=== PATIENT | male | born 1990 | race Two or more races ===

== ENCOUNTER 2020-01-05 15:08 | Inpatient (IN) | payer MEDICAID ==
[~2020-01-05] VITALS: Ht 170.2 cm; Wt 92.5 kg
[2020-01-05] MEDS ORDERED: SODIUM CHLORIDE 0.9% 1,000 ML IV ONE ×2 (16:07→18:25)
[2020-01-05] MEDS ORDERED: ONDANSETRON HCL 4MG/2ML INJ IV ONE (16:15)
[2020-01-05] MEDS ORDERED: KETOROLAC 30MG/ML VIAL IV ONE (16:15)
[2020-01-05] MEDS ORDERED: ACETAMINOPHEN 325MG TABLET PO ONE (16:45)
[2020-01-05 16:56] LABS: HEMATOCRIT. 43.8 % (42.0-52.0); HEMOGLOBIN. 15.3 g/dL (14.0-18.0); MEAN CORPUSCULAR HEMOGLOBIN 30.1 pg (28.0-32.0); MEAN CORPUSCULAR VOLUME 85.9 fL (80.0-94.0); PLATELET 245 x1000/uL (130-400); RED CELL DISTRIBUTION WIDTH 13.4 % (11.6-14.6)
[2020-01-05 17:02] LABS: CHLORIDE 102 mEq/L (98-107)
[2020-01-05 17:23] LABS: PLATELET ESTIMATE NORMAL
[2020-01-05 17:27] LABS: CLARITY URINE CLOUDY (CLEAR); COLOR URINE DARK YELLOW (YELLOW); KETONES URINE NEGATIVE (NEGATIVE); LEUKOCYTE ESTERASE URINE 3+ (NEGATIVE); NITRITE URINE NEGATIVE (NEGATIVE); OCCULT BLOOD URINE NEGATIVE (NEGATIVE); PH URINE 6.5 (4.5-8.0); PROTEIN URINE NEGATIVE (NEGATIVE)
[2020-01-05 17:49] LABS: *AMPHETAMINES SCREEN URINE NEGATIVE (NEGATIVE); *BARBITURATES SCREEN URINE NEGATIVE (NEGATIVE); *BENZODIAZEPINES SCREEN URINE NEGATIVE (NEGATIVE)
[2020-01-05 17:50] LABS: *COCAINE SCREEN URINE NEGATIVE (NEGATIVE); METHADONE URINE SCREEN NEGATIVE (NEGATIVE); OPIATES URINE SCREEN NEGATIVE (NEGATIVE); PHENCYCLIDINE URINE SCREEN NEGATIVE (NEGATIVE)
[2020-01-05 17:52] LABS: CANNABINOID URINE SCREEN NEGATIVE (NEGATIVE)
[2020-01-05] MEDS ORDERED: CEFTRIAXONE 1 G PREMIX 50 ML IV ONE (18:15)
[2020-01-05 18:35] LABS: CREATINE KINASE 126 IU/L (39-308)
[2020-01-05] MEDS ORDERED: ACETAMINOPHEN 325MG TABLET PO PRN (23:15)
[2020-01-05] MEDS ORDERED: IPRATROPIUM/ALBUTEROL 0.5-3(2.5)MG/3ML NEB NEB PRN (23:15)
[2020-01-05] MEDS ORDERED: ONDANSETRON HCL 4MG/2ML INJ IV PRN (23:15)
[2020-01-05] MEDS ORDERED: DOCUSATE SODIUM 100MG CAPSULE PO PRN (23:15)
[2020-01-05] MEDS ORDERED: CLONIDINE 0.1MG TABLET PO PRN (23:15)
[2020-01-05] MEDS ORDERED: MAGNESIUM/ALUMINUM HYDROXIDE/SIMETHICONE 30ML UDC PO PRN (23:15)
[2020-01-06 00:16] LABS: HEPATITIS B SURFACE ANTIGEN NEGATIVE
[2020-01-06 00:45] LABS: HEPATITIS A AB IGM NEGATIVE (NEGATIVE)
[2020-01-06] MEDS ORDERED: DIPHENHYDRAMINE 25MG CAPSULE PO PRN (03:30)
[2020-01-06 04:40] LABS: HEMOGLOBIN. 13.4 g/dL (14.0-18.0); MEAN CORPUSCULAR HEMOGLOBIN 30.1 pg (28.0-32.0); MEAN CORPUSCULAR VOLUME 85.8 fL (80.0-94.0); MEAN PLATELET VOLUME 8.8 fl (7.4-10.4); PLATELET 203 x1000/uL (130-400); RED BLOOD CELL COUNT 4.43 mill/uL (4.7-6.1); RED CELL DISTRIBUTION WIDTH 13.3 % (11.6-14.6)
[2020-01-06 04:43] LABS: CHLORIDE 106 mEq/L (98-107)
[2020-01-06 04:52] LABS: LDL CHOLESTEROL 47 mg/dL (5-100)
[2020-01-06 04:53] LABS: CREATINE KINASE 61 IU/L (39-308); HDL CHOLESTEROL 10 mg/dL (40-59)
[2020-01-06 04:56] LABS: CREATINE KINASE MB FRACTION < 1.0 ng/mL (0.5-3.6)
[2020-01-06 05:02] LABS: ATYPICAL LYMPHOCYTES 4; PLATELET ESTIMATE NORMAL
[2020-01-06] MEDS ORDERED: CEFTRIAXONE 1 G PREMIX 50 ML IV NR (08:30)
[2020-01-06] MEDS ORDERED: IOHEXOL-300 100 ML BOTTLE ONE (18:54)
[2020-01-06 21:31] LABS: CREATINE KINASE 46 IU/L (39-308); CREATINE KINASE MB FRACTION < 1.0 ng/mL (0.5-3.6)
[2020-01-07] MEDS ORDERED: CEFTRIAXONE 1 G PREMIX 50 ML IV SCH (09:00)
[2020-01-07 10:10] VITALS: BP 124/80
[2020-01-07] MEDS: LEVOFLOXACIN 750MG PREMIX 150 ML IV SCH (11:56)
[2020-01-07 20:00] VITALS: BP 122/75
[2020-01-08] VITALS: BP 126/80
[2020-01-08 04:00] VITALS: BP 128/84
[2020-01-08 04:06] LABS: HIV SCREEN 4G Non Reactive (Non Reactive)
[2020-01-08 04:06] LABS: NEISSERIA GONORRHOEAE NAA Positive (Negative)
[2020-01-08 06:40] LABS: HEMATOCRIT. 36.2 % (42.0-52.0); HEMOGLOBIN. 12.6 g/dL (14.0-18.0); MEAN CORPUSCULAR HEMOGLOBIN 30.3 pg (28.0-32.0); MEAN CORPUSCULAR VOLUME 86.7 fL (80.0-94.0); PLATELET 180 x1000/uL (130-400); RED BLOOD CELL COUNT 4.17 mill/uL (4.7-6.1); RED CELL DISTRIBUTION WIDTH 13.4 % (11.6-14.6)
[2020-01-08 07:03] LABS: CHLORIDE 105 mEq/L (98-107)
[2020-01-08 07:11] LABS: HAPTOGLOBIN 208 mg/dL (30-200)
[2020-01-08 08:00] VITALS: BP 116/70
[2020-01-08] MEDS: LEVOFLOXACIN 750MG PREMIX 150 ML IV SCH (11:47)
[2020-01-08 12:00] VITALS: BP 123/81
[2020-01-08] MEDS ORDERED: AZITHROMYCIN 500 MG TABLET PO SCH (13:00)
[2020-01-08 13:50] LABS: PLATELET ESTIMATE NORMAL
[2020-01-08] MEDS: CEFTRIAXONE 1 G PREMIX 50 ML IV SCH (14:44)
[2020-01-08] MEDS: METRONIDAZOLE 500 MG PREMIX 100 ML IV SCH ×2 (14:59→21:39)
[2020-01-08 16:00] VITALS: BP 114/67
[2020-01-08 20:00] VITALS: BP 125/82
[2020-01-09] VITALS: BP 122/76
[2020-01-09 04:00] VITALS: BP 120/73
[2020-01-09] MEDS: METRONIDAZOLE 500 MG PREMIX 100 ML IV SCH ×3 (05:27→21:20)
[2020-01-09 07:01] LABS: HEMATOCRIT. 37.6 % (42.0-52.0); MEAN CORPUSCULAR HEMOGLOBIN 29.6 pg (28.0-32.0); MEAN PLATELET VOLUME 9.3 fl (7.4-10.4); PLATELET 184 x1000/uL (130-400); RED BLOOD CELL COUNT 4.38 mill/uL (4.7-6.1); RED CELL DISTRIBUTION WIDTH 13.5 % (11.6-14.6)
[2020-01-09 07:27] LABS: CHLORIDE 105 mEq/L (98-107)
[2020-01-09 08:00] VITALS: BP 110/70
[2020-01-09] MEDS: CEFTRIAXONE 1 G PREMIX 50 ML IV SCH (09:00)
[2020-01-09 12:00] VITALS: BP 132/87
[2020-01-09 16:00] VITALS: BP 130/91
[2020-01-09 20:00] VITALS: BP 117/72
[2020-01-09 21:05] LABS: ATYPICAL LYMPHOCYTES 7
[2020-01-09 21:06] LABS: PLATELET ESTIMATE NORMAL
[2020-01-10] VITALS: BP 116/72
[2020-01-10 04:00] VITALS: BP 107/64
[2020-01-10] MEDS: METRONIDAZOLE 500 MG PREMIX 100 ML IV SCH ×2 (05:26→13:59)
[2020-01-10 08:00] VITALS: BP 122/76
[2020-01-10] MEDS: CEFTRIAXONE 1 G PREMIX 50 ML IV SCH (08:05)
[2020-01-10 12:00] VITALS: BP 112/74
[2020-01-10 15:51] VITALS: BP 109/67
[2020-01-10 16:00] VITALS: BP 109/67
[2020-01-11 08:00] VITALS: BP 122/73
[2020-01-11 11:58] VITALS: BP 108/60
== END 2020-01-10 16:59 | disposition home or self-care (01) | DRG 720 ==
LOC: ER 15:08 → 6EST 21:16 → EDBEDREQ 21:18 → EDBEDREQTM 21:18 → ENRESERV 01-07 09:17
PROVIDERS: ADMIT Internal Medicine; ATTEND Internal Medicine
DX: A41.9 Sepsis, unspecified organism (principal); J90 Pleural effusion, not elsewhere classified; K81.0 Acute cholecystitis; K70.9 Alcoholic liver disease, unspecified; K75.9 Inflammatory liver disease, unspecified; D64.9 Anemia, unspecified; D72.821 Monocytosis (symptomatic); E78.00 Pure hypercholesterolemia, unspecified; K57.30 Diverticulosis of large intestine without perforation or abscess without bleeding; E78.1 Pure hyperglyceridemia; K42.9 Umbilical hernia without obstruction or gangrene; N39.0 Urinary tract infection, site not specified; J45.909 Unspecified asthma, uncomplicated; K76.0 Fatty (change of) liver, not elsewhere classified; R74.0 Nonspecific elevation of levels of transaminase and lactic acid dehydrogenase [LDH]; K76.9 Liver disease, unspecified; Z20.828 Contact with and (suspected) exposure to other viral communicable diseases; A54.01 Gonococcal cystitis and urethritis, unspecified; R16.2 Hepatomegaly with splenomegaly, not elsewhere classified; Z79.899 Other long term (current) drug therapy
CPT/HCPCS: 36415; 71045; 74177; 76700; 80048; 80053; 80076; 80305; 81003; 82390; 82550; 83010; 83605; 83615; 84145; 85025; 85044; 85651; 86038; 86141; 86705; 86709; 86803; 86880; 87340; 87491; 87591; 93005; 93306; 93880; 96365; 96375; 96376; 99285; J0696; J1885; J1956; J2405; J3490; J7030; Q0163; Q9967